=== PATIENT | female | born 1955 | race Two or more races ===

== ENCOUNTER 2020-01-20 19:15 | Emergency (ER) | payer MEDICAID, OTHER ==
[~2020-01-20] VITALS: Ht 167.6 cm; Wt 77.1 kg
[2020-01-20 20:02] VITALS: BP 185/102
[2020-01-20] MEDS ORDERED: THIAMINE 100mg/ml INJ (200mg/2ml VIAL) IM ONE (23:15)
== END 2020-01-20 23:25 | disposition home or self-care (01) ==
LOC: ER 19:15
DX: S63.502A Unspecified sprain of left wrist, initial encounter (principal); S66.911A Strain of unspecified muscle, fascia and tendon at wrist and hand level, right hand, initial encounter; S86.911A Strain of unspecified muscle(s) and tendon(s) at lower leg level, right leg, initial encounter; F15.10 Other stimulant abuse, uncomplicated; F10.10 Alcohol abuse, uncomplicated; M54.2 Cervicalgia; R51.9 Headache, unspecified; F17.210 Nicotine dependence, cigarettes, uncomplicated; W01.0XXA Fall on same level from slipping, tripping and stumbling without subsequent striking against object, initial encounter; Y93.89 Activity, other specified; Y92.89 Other specified places as the place of occurrence of the external cause; Y99.8 Other external cause status
CPT/HCPCS: 70450; 72125; 72170; 73110; 96372; 99285; J3411